=== PATIENT | female | born 1975 | race Hispanic/Latino ===

== ENCOUNTER 2016-07-11 12:16 | Day surgery (SDC) | payer SELFPAY ==
[~2016-07-11] VITALS: Ht 165.1 cm; Wt 63.8 kg
[2016-07-11] VITALS (10 sets, daily range): BP systolic 104–119; BP diastolic 48–87; PULSE 72–83; RESP 14–18; O2SAT 96–100
--- NOTE | 2016-07-11 09:10 | PCM.HPANE ---
Patient Data Date of Service: Jul 11, 2016 Surgeon Admitting Provider: Attending Provider:Tyron Ramirez MD Primary Care Physician:Michelle Other Provider:Philip Shah Anesthesia Reason for Visit High Grade Stephanie Ht/WT & BMI Height (Feet): 4 Height (Inches): 11 Weight (Kilograms): 63.956 Body Mass Index 28.00 Allergies Coded Allergies: No Known Allergies (Unverified , 07/10/16) Past Anesthesia History Anesthesia History: Denies:: Anesthesia Reactions, Malignant Hyperthermia Diabetes History Hx Diabetes?: No MRSA MRSA: No Medications No Active Prescriptions or Reported Meds History History of ENT Problems?: No Hx of Heart Problems?: No Cardiovascular History: Denies:: Hypertension Hx of Respiratory Problem?: No Respiratory History: Denies:: Use of C-PAP Machine Hx Neurologic Problems?: No Hx of GI Problems?: No Hx of Problems?: No Female Hx: Denies:: Currently (S/P C/S) Skin History: Denies:: History Skin Disorders? Pressure Ulcers Hx Musculoskeletal Problems?: No Hx of Psycho/Social Problems?: No Hx Surgeries?: Yes (C/S) Hx Any Other Health Problems?: Yes Other History: Denies:: Cancer Endocrine Disease Hospitalization Thyroid Disease Hx Diabetes: No Stop/Bang Treated for Sleep Apnea?: No Do You Have a CPAP Machine?: No S-Snoring: Do You Snore Loudly: No T-Tired: feel tired, fatigued: No O-Obsered: Observed not breath: No P-Blood Pressure: treated: No B- Body Mass Index > 35 kg/m2: No A- Age over 50: No N- Neck Large Circumference: No G- Gender Male: No SHAHANA Total Score: 0 SHAHANA Risk Assessment: Low Risk, <3 Yes SHAHANA Category 1: Yes Risk Assessment Category Category 1A: Patient has history of documented sleep apnea, and HAS NOT received any narcotic, sedative or anesthesia administration during this stay. Category 1B: Patient has history of documented sleep apnea, and HAS received any narcotic , sedative or anesthesia administration during this stay Category 2: Patient has SUSPECTED Obstructive Sleep Apnea, and HAS received any narcotic , sedative or anesthesia administration during this stay. Category 3: Patient has SUSPECTED Obstructive Sleep Apnea and HAS NOT received narcotic, sedative or anesthesia administration during this stay. Category 4: Outpatient in Procedural Areas with known sleep apnea or who screen positive for High Risk via the STOP/BANG questionnaire. Exam Exam General Appearance: Alert, Oriented X3, Cooperative, No Acute Distress HEENT/AIRWAY: MP 1 Lungs: Clear to Auscultation, Clear to Percussion, Normal Air Movement Heart: Exam Unremarkable, Normal S1, Normal S2 Plan Impression Patient chart reviewed, patient interviewed and anesthestic plan with risks, benefits, and alternatives discussed, and informed consent obtained. 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
[2016-07-11] MEDS ORDERED: Propofol 10,000 mCg/mL 20 mL Inj ONE (12:17)
[2016-07-11] MEDS ORDERED: Dexamethasone 4 mg/mL Inj ONE (12:17)
[2016-07-11] MEDS ORDERED: Ketamine 10 mg/mL 20 mL Inj ONE (12:17)
[2016-07-11] MEDS ORDERED: Ondansetron 2 mg/mL 2 mL Inj ONE (12:17)
[2016-07-11] MEDS ORDERED: fentaNYL-PF 50 mCg/mL 2 mL Inj ONE (12:17)
[2016-07-11] MEDS: Lactated Ringer's 1,000 ML IV SCH ×2 (12:58→14:17)
[2016-07-11] MEDS ORDERED: oxyCODONE-Acetamin 5-325 mg Tablet PO PRN (14:10)
--- NOTE | 2016-07-11 14:14 | PCM.DIOB ---
Obstetrical Disch Instruction Date of Service: Jul 11, 2016 Dates of Hospitalization Date of Hospital Admission Providers Admitting Physician: Primary Care Physician: Nopcp Attending Physician: Tyron Ramirez MD Discharge Diagnosis Discharge Diagnosis S/P LEEP and IUD removal for GRISELDA 2 in ECC and inadequate colposcopy. Post Operative diagnosis S/P LEEP and IUD removal for GRISELDA 2 in ECC and inadequate colposcopy. Problems: Diet Discharge Diet: No restrictions Activity Discharge Activity-General: Pelvic Rest for 6 weeks (no sex , tampons nor douching), Activity as pain allows, Activity as energy allows, No lifting >15 pounds for 2 weeks Dressing and Incisional Care Hygiene: May shower Follow Up Plan Follow-up Provider (F9): Tyron Ramirez MD Follow-up appointment: Weeks (1 week for Depo shot and path report ) Call your provider for: Fever or Chills, Shortness of breath, Heavy vaginal bleeding, Heavy bleeding, Epigastric pain, Excessive constipation Tyron Ramirez MD Jul 11, 2016 14:14
[2016-07-11] MEDS ORDERED: Lidocaine 1%-Epi 1:100,000 20 mL Inj INFILTRATE ONE (14:36)
[2016-07-11] MEDS ORDERED: Lactated Ringer's 1,000 ML IV SCH (14:46)
[2016-07-11] MEDS ORDERED: Lactated Ringer's 500 ML IV PRN (14:46)
[2016-07-11] MEDS ORDERED: fentaNYL-PF 50 mCg/mL 2 mL Inj IVPUSH PRN (14:50)
[2016-07-11] MEDS ORDERED: Ondansetron 2 mg/mL 2 mL Inj IVPUSH PRN (14:50)
[2016-07-11] MEDS ORDERED: Dexamethasone 4 mg/mL Inj IVPUSH PRN (14:50)
[2016-07-11] MEDS ORDERED: Phenylephrine 10,000 mCg/mL Inj IVPUSH PRN (14:50)
[2016-07-11] MEDS ORDERED: Atropine 0.4 mg/mL Inj IVPUSH PRN (14:50)
[2016-07-11] MEDS ORDERED: MetoCLOpramide 5 mg/mL 2 mL Inj IVPUSH PRN (14:50)
[2016-07-11] MEDS ORDERED: EPHEDrine Sulfate 50 mg/mL Inj IVPUSH PRN (14:50)
[2016-07-11] MEDS ORDERED: HYDROmorphone 1 mg/mL Inj IVPUSH PRN (14:50)
[2016-07-11] MEDS ORDERED: Labetalol 5 mg/mL 4 mL Inj IV PRN (14:50)
--- NOTE | 2016-07-11 16:02 | PCM.ANEP1 ---
Post Anesthesia Phase 1 PACU Phase 1 Assessment Date of Service: Jul 11, 2016 Vital Signs Vital Signs Date Time Temp Pulse Resp B/P Pulse Ox O2 Delivery O2 Flow Rate FiO2 07/11/16 15:55 75 14 119/60 99 Room Air 07/11/16 15:50 36.3 73 16 117/71 100 Room Air 07/11/16 15:40 83 18 110/48 100 Simple Mask 8 07/11/16 15:35 83 18 116/70 100 Simple Mask 8 07/11/16 15:30 79 15 111/64 100 Simple Mask 8 07/11/16 15:25 77 14 116/63 100 Simple Mask 8 07/11/16 15:20 78 15 114/87 100 Simple Mask 8 07/11/16 15:15 36.1 82 15 116/64 100 Simple Mask 8 07/11/16 12:40 36.5 72 16 104/67 96 Room Air Anesthetic Administered: GA Level of Alertness: Awake, talking CUMMINGS's with Equal Strength: Yes Pain: No Nausea or Vomiting: No Oxygen Delivery: Simple Mask Lungs: Clear to Auscultation, Clear to Percussion, Normal Air Movement Dermatome Level: Full Sensation Davi Strong DO Jul 11, 2016 16:02
--- NOTE | 2016-07-11 16:08 | OP ---
[address] [address] OPERATIVE REPORT PATIENT: AMANDA PETERS : 1975 MR#: [id number] ADMIT: 07/11/2016 JOB ID: [id number] DATE OF SURGERY: 07/11/2016 PREOPERATIVE DIAGNOSIS(ES): 1. Cervical intraepithelial neoplasia 2. 2. Endocervical curettage with inadequate colposcopy. 3. Desires intrauterine device removal. POSTOPERATIVE DIAGNOSIS(ES): 1. Cervical intraepithelial neoplasia 2. 2. Endocervical curettage with inadequate colposcopy. 3. Desires intrauterine device removal. SURGEON: Tyron Ramirez MD. HOSPITAL PERSONNEL DIRECTOR: Layo Ramos MD. Inspector Poising was needed for retraction and exposure. PROCEDURE: 1. Intrauterine device removal (ParaGard intrauterine device). 2. Loop electrosurgical excision procedure of the transformation zone. FINDINGS: Exam under anesthesia revealed a 9-10 week size uterus, mobile, anteverted, anteflexed. No palpable adnexal masses. Uterus was sounded to 10 cm. ParaGard IUD was removed intact with the attached strings. ESTIMATED BLOOD LOSS: 50 mL. INTRAVENOUS FLUIDS: 400 mL crystalloid fluid. URINE OUTPUT: Bladder was straight catheterized with 150 mL. Clear urine prior to the procedure. ANESTHESIA: General. DESCRIPTION OF PROCEDURE: The patient was taken to the operating room. She was placed under general anesthesia. Then, she was placed in dorsal lithotomy position. She was prepped and draped in usual sterile manner. A weighted speculum was placed in the posterior vaginal vault. Anterior retractor was used with good visualization of the cervix. The anterior lip of the cervix was grasped with a single-toothed tenaculum. The cervix was gradually dilated with a Hegar dilator up to size 6 to accommodate a polyp forceps that was passed through the cervical os in attempt to remove the intrauterine device. First, the strings were removed, detached from the IUD. Then, with several passes of the polyp forceps, the ParaGard IUD was removed intact. Then, attention was turned to the LEEP, where the cervix was painted with Lugol solution to delineate the transformation zone. A circumferential margin of decreased uptake was noted around the cervical os. Extended to 2 mm from the cervical os circumferentially. Then, a size 2 x 0.8 cm loop electrode was used to excise the anterior lip of the cervix around the cervical os including the transformation zone. Then, the same loop electrode was used to excise the lower lip of the cervix. For better excision margins, the left margin at 3 o'clock position was also excised. Then, top hat fashion specimen was excised using a 1.5 x 1.2 cm loop electrode to excise the endocervix. Then, endocervical curettage was performed. After excision of all cone biopsy specimens, a silver ball electrode was used to cauterize the bed of the excised specimens with excellent hemostasis. A superficial vaginal wall laceration on the right was closed with [id number] using 0 Vicryl suture material. Single-toothed tenaculum was removed. Monsel solution was applied at the site of the tenaculum and at the excised specimen bed to ensure hemostasis. The cervix was hemostatic. All instruments were removed. The patient was then recovered from the anesthesia and transferred to the recovery room in stable condition. All instrument, needle and sponge counts were correct x2. The patient tolerated the procedure well. Tyron Styles MD, was present and scrubbed for the entire procedure. HAYLEE
--- NOTE | 2016-07-11 16:36 | PCM.ANEP2 ---
Post Anesthesia Evaluation ASA/CMS Post Anesthesia Date of Service: Jul 11, 2016 VS in Patient's Normal Range?: Yes Resp Stable; Airway Patent?: Yes CV Function & Hydration Stable: Yes Mental Status Recovered?: Yes Pain control Satisfactory?: Yes N/V Control Satisfactory?: Yes Davi Strong DO Jul 11, 2016 16:36
--- NOTE | 2016-07-15 14:17 | PATH ---
SURGICAL PATHOLOGY Attending Physician:Tyron Ramirez CASE STATUS: Signed Out PATIENT NAME: MARCELO PETERS PID: [id number] : 1975 DATE COLLECTED:07/11/2016 22:40 SPECIMEN: 1: Cervical, Cone 2: Cervix, Biopsy 3: Cervix, Biopsy 4: Endocervix, Curettage CLINICAL HISTORY: HIGH GRADE ELVIN, GRISELDA 2 IN ECC, INADEQUATE COLPOSCOPY 1). LEEP CERVICAL CONE, LONG STITCH 12:00, SHORT STITCH 6:00 2). CERVICAL CANAL 3). CERVICAL BIOPSY @ 15:00 4). ENDOCERVICAL CURETTAGE FINAL DIAGNOSIS: 1.LEEP CERVICAL CONE BIOPSY: FOCAL CHANGES CONSISTENT WITH GRISELDA 2 INVOLVING TISSUE FROM THE 1 TO 3 O' CLOCK POSITION AND ALSO 9 TO 12 O' CLOCK POSITION. NEGATIVE FOR EVIDENCE OF INVASIVE MALIGNANCY. 2.BIOPSIES, CERVICAL CANAL: CERVICAL TISSUE NEGATIVE FOR SIGNIFICANT ATYPIA. 3.CERVICAL BIOPSY AT 15:00: FOCAL CHANGES CONSISTENT WITH GRISELDA 1. NO HIGH-GRADE CHANGES NOTED. 4.ENDOCERVICAL CURETTINGS: FRAGMENTS OF ENDOCERVICAL TISSUE, NEGATIVE FOR ATYPIA. ICD10 CODE N87.1 GROSS DESCRIPTION: The specimens are received in formalin, labeled with the patient's name, and sublabeled as the following: (1) cervical cone, long the 1200, short 600; (2) cervical canal; (3) cervical BX at 1500; (4) endocervical curettage. (1) The specimen consists of a cervical cone biopsy (0.9 cm 12:00 to 6:00, 2.0 cm 3:00 to 9:00, 1.2 cm superficial to deep) received in 2 suture orientated pieces (long-12:00, short-6:00). The mucosa is winkler-pink smooth and shiny. The endocervix is winkler-carpio and finely granular. An ulcerated area (0.3 x 0.2 cm) is located 0.7 cm from the 6:00 and 0.1 cm from the deep resection margins. No nodules, masses, lesions or other irregular areas are identified. The specimen is radially sectioned clockwise from 12:00. Ink code: blue-radial; left-deep; orange-os. Section code: (1A) 12:00 to 3:00; (1B) 3:00 to 6:00; (1C) 6:00 to 9:00; (1D) then attaches o'clock. Specimen entirely submitted. (2) The specimen consists of an unoriented cervical biopsy (1.3 x 0.8 x 0.7 cm). Mucosa is winkler-carpio smooth and shiny. Endocervix is winkler-carpio and finely granular. No nodules, masses or lesions are identified. Ink code: blue-radial; left-deep; orange-os. Section code: (2A-2D) cervical biopsy radially sectioned and submitted clockwise. Specimen entirely submitted. (3) The specimen consists of an unoriented piece of cervix (1.7 x 1.2 x 0.8 cm). The mucosa is carpio-grissom smooth and shiny. The endocervix is winkler-carpio and finely granular. No nodules, masses or lesions are identified. Ink code: black-resection margin. Section code: (3A) cervical tissue, radially sectioned. Specimen entirely submitted. (4) The specimen consists of hemorrhagic mucoid tissue (0.8 x 0.5 x 0.1 cm). Section code: (4A) tissue. Specimen entirely submitted. 07/13/16 JM MICRO DESCRIPTION: See diagnosis. ICD-9 CODES: CPT CODES: 1: 81703 2: 59179 3: 64227 4: 64992 Electronically Signed Out Joshua Schwartz MD [facility] [address] [facility], [place] [address] Technical component performed at [facility], [address] [place] [address] Ave[address], [place], [address]
== END 2016-07-11 23:59 | disposition home or self-care (01) ==
LOC: SAS 12:16
PROVIDERS: ATTEND Obstetrics & Gynecology
DX: N87.1 Moderate cervical dysplasia (principal); Z30.432 Encounter for removal of intrauterine contraceptive device
CPT/HCPCS: 57522; 58301; J1100; J1200; J2250; J2405; J3010; J7120